=== PATIENT | male | born 1990 | race Caucasian/White ===

== ENCOUNTER 2017-03-24 20:53 | Emergency (ER) | payer BC, OTHER ==
[~2017-03-24] VITALS: Ht 170.2 cm; Wt 65.8 kg
[~2017-03-24 20:53] MED LIST: AUGMENTIN 875875 MG PO; AZITHROMYCIN 2250 MG PO; CIPROFLOXACIN500 M1 PO; CLARITIN-D 12 H1 TA1 PO; CLINDAMYCIN HC150 MG PO; ERYTHROMYCIN E3.5 G1 OPHTHALMIC; FLAGYL500 MG PO; IBUPROFEN 600600 M1 PO; IBUPROFEN 800800 MG PO; NOHOMEMEDICATIONS; NORCO 5-325 TA1 EACH PO; PHENERGAN 25 MG25 M1 PO; SUDAFED 12 HOU120 MG PO; TESSALON PERLE100 MG PO; TUSSIONEX PENN473 ML PO; TYLENOL COLD H1 EACH PO; VENTOLIN HFA 1818 GM INH
[2017-03-24] MEDS ORDERED: PROPRANOLOL 8080 MG PO (22:42)
[2017-07-19] MEDS ORDERED: MOBIC15 MG PO (16:07)
== END 2017-03-24 23:58 | disposition home or self-care (01) ==
LOC: ER 20:53
DX: G43.909 Migraine, unspecified, not intractable, without status migrainosus (principal); F17.210 Nicotine dependence, cigarettes, uncomplicated; Z88.1 Allergy status to other antibiotic agents

== ENCOUNTER 2017-04-03 00:21 | Emergency (ER) | payer BC, OTHER ==
[~2017-04-03] VITALS: Ht 170.2 cm; Wt 64.9 kg
[~2017-04-03 00:21] MED LIST changes: +PROPRANOLOL 8080 MG PO
[2017-04-03 00:52] LABS: HEMATOCRIT 40.1 % (42.0-52.0); HEMOGLOBIN 14.2 gm/dL (14.0-18.0); MCH 32.3 pg (26.0-34.0); MCHC 35.3 g/dL (28.0-37.0); MCV 91.6 fL (80.0-100.0); RBC 4.38 mil/uL (4.50-6.00); RDW 12.2 % (10.5-14.5)
[2017-04-03 00:55] LABS: CALCIUM 8.8 mg/dL (8.5-10.1); POTASSIUM 3.7 mmol/L (3.5-5.1)
[2017-04-03 01:01] LABS: ALBUMIN 3.7 g/dL (3.4-5.0); TOTAL BILIRUBIN 0.3 mg/dL (<0.1-1.0); TOTAL PROTEIN 7.5 g/dL (6.4-8.2)
[2017-04-03] MEDS ORDERED: BENTYL 10 MG CA10 M1 PO (01:18)
[2017-07-19] MEDS ORDERED: MOBIC15 MG PO (16:07)
== END 2017-04-03 01:39 | disposition home or self-care (01) ==
LOC: ER 00:21
PROVIDERS: Emergency Medicine
DX: R10.9 Unspecified abdominal pain (principal); R19.7 Diarrhea, unspecified; G43.909 Migraine, unspecified, not intractable, without status migrainosus; F17.210 Nicotine dependence, cigarettes, uncomplicated; Z88.1 Allergy status to other antibiotic agents

== ENCOUNTER 2017-04-05 14:42 | Emergency (ER) | payer BC, OTHER ==
[~2017-04-05] VITALS: Ht 170.2 cm; Wt 64.4 kg
[~2017-04-05 14:42] MED LIST changes: +BENTYL 10 MG CA10 M1 PO
[2017-07-19] MEDS ORDERED: MOBIC15 MG PO (16:07)
== END 2017-04-05 15:57 | disposition home or self-care (01) ==
LOC: ER 14:42
DX: L29.9 Pruritus, unspecified (principal); T43.615A Adverse effect of caffeine, initial encounter; G43.909 Migraine, unspecified, not intractable, without status migrainosus; F17.210 Nicotine dependence, cigarettes, uncomplicated; Z88.1 Allergy status to other antibiotic agents; Y92.89 Other specified places as the place of occurrence of the external cause

== ENCOUNTER 2017-04-21 23:31 | Emergency (ER) | payer BC, OTHER ==
[~2017-04-21] VITALS: Ht 170.2 cm; Wt 62.1 kg
[2017-04-21] MEDS ORDERED: ANTIBIOTIC (23:38)
[2017-04-21 23:53] LABS: URINE BILIRUBIN NEGATIVE (Negative); URINE BLOOD NEGATIVE (Negative); URINE CLARITY CLEAR; URINE COLOR YELLOW; URINE GLUCOSE-RANDOM* NEGATIVE (Negative); URINE KETONES NEGATIVE (Negative); URINE LEUKOCYTES-REFLEX NEGATIVE (Negative); URINE NITRITE-REFLEX NEGATIVE (Negative); URINE PROTEIN (DIPSTICK) NEGATIVE (Negative); URINE SPECIFIC GRAVITY 1.025 (1.005-1.035); URINE UROBILINOGEN 0.2 E.U./dl (0.2-1.0)
[2017-04-22 00:02] LABS: BASOPHILS 1.1 % (0.0-2.0); EOSINOPHILS 3.7 % (0.0-3.0); HEMATOCRIT 39.3 % (42.0-52.0); HEMOGLOBIN 13.7 gm/dL (14.0-18.0); LYMPHOCYTES 50.8 % (24.0-44.0); MCH 31.7 pg (26.0-34.0); MCHC 34.9 g/dL (28.0-37.0); MCV 90.8 fL (80.0-100.0); MONOCYTES 7.1 % (1.0-8.0); PLATELET COUNT 259 thou/uL (150-400); POLYS 37.3 % (36.0-66.0); RBC 4.33 mil/uL (4.50-6.00); RDW 12.4 % (10.5-14.5); WBC 5.4 thou/uL (4.0-11.0)
[2017-04-22 00:08] LABS: CALCIUM 8.9 mg/dL (8.5-10.1); CREATININE 0.9 mg/dL (0.7-1.3); POTASSIUM 4.3 mmol/L (3.5-5.1)
[2017-04-22] MEDS ORDERED: AZITHROMYCIN 2250 MG PO (00:09)
[2017-04-22 00:15] LABS: ALBUMIN 3.9 g/dL (3.4-5.0); DIRECT BILIRUBIN 0.1 mg/dL (<0.1-0.3); TOTAL BILIRUBIN 0.5 mg/dL (<0.1-1.0); TOTAL PROTEIN 7.3 g/dL (6.4-8.2)
[2017-04-22] MEDS ORDERED: PRILOSEC OTC20 MG PO (00:27)
[2017-07-19] MEDS ORDERED: MOBIC15 MG PO (16:07)
== END 2017-04-22 00:47 | disposition home or self-care (01) ==
LOC: ER 23:31
PROVIDERS: Emergency Medicine
DX: R10.13 Epigastric pain (principal); R30.0 Dysuria; G43.909 Migraine, unspecified, not intractable, without status migrainosus; F17.210 Nicotine dependence, cigarettes, uncomplicated

== ENCOUNTER 2017-05-02 20:24 | Emergency (ER) | payer BC, OTHER ==
[~2017-05-02] VITALS: Ht 170.2 cm; Wt 62.1 kg
[~2017-05-02 20:24] MED LIST changes: +ANTIBIOTIC; +PRILOSEC OTC20 MG PO
[2017-05-02] MEDS ORDERED: ZANTAC 150MG T150 MG PO (21:44)
[2017-07-19] MEDS ORDERED: MOBIC15 MG PO (16:07)
== END 2017-05-02 21:54 | disposition home or self-care (01) ==
LOC: ER 20:24
DX: K21.9 Gastro-esophageal reflux disease without esophagitis (principal); J02.9 Acute pharyngitis, unspecified; L29.9 Pruritus, unspecified; G43.909 Migraine, unspecified, not intractable, without status migrainosus; F17.210 Nicotine dependence, cigarettes, uncomplicated; Z88.1 Allergy status to other antibiotic agents

== ENCOUNTER 2017-05-13 17:24 | Emergency (ER) | payer BC, OTHER ==
[~2017-05-13] VITALS: Ht 170.2 cm; Wt 62.6 kg
[~2017-05-13 17:24] MED LIST changes: +ZANTAC 150MG T150 MG PO
[2017-05-13] MEDS ORDERED: OMEPRAZOLE40 MG PO (17:59)
[2017-07-19] MEDS ORDERED: MOBIC15 MG PO (16:07)
== END 2017-05-13 18:26 | disposition home or self-care (01) ==
LOC: ER 17:24
DX: K21.9 Gastro-esophageal reflux disease without esophagitis (principal); G43.909 Migraine, unspecified, not intractable, without status migrainosus; Z88.1 Allergy status to other antibiotic agents

== ENCOUNTER 2017-12-10 21:37 | Emergency (ER) | payer BC, OTHER ==
[~2017-12-10] VITALS: Ht 170.2 cm; Wt 65.8 kg
[~2017-12-10 21:37] MED LIST changes: +MOBIC15 MG PO; +OMEPRAZOLE40 MG PO
[2017-12-10] MEDS ORDERED: ONDANSETRON HCL4 M2 PO (23:42)
[2017-12-10] MEDS ORDERED: MOBIC7.5 MG PO (23:42)
[2017-12-10] MEDS ORDERED: PREDNISONE 20 M20 MG PO (23:42)
[2017-12-10 23:47] VITALS: BP 98/64
== END 2017-12-10 23:48 | disposition home or self-care (01) ==
LOC: ER 21:37
DX: J02.8 Acute pharyngitis due to other specified organisms (principal); B97.89 Other viral agents as the cause of diseases classified elsewhere; R11.2 Nausea with vomiting, unspecified; G43.909 Migraine, unspecified, not intractable, without status migrainosus; K21.9 Gastro-esophageal reflux disease without esophagitis; Z88.1 Allergy status to other antibiotic agents

== ENCOUNTER 2017-12-19 14:41 | Emergency (ER) | payer BC, OTHER ==
[~2017-12-19] VITALS: Ht 170.2 cm; Wt 65.8 kg
[~2017-12-19 14:41] MED LIST changes: +MOBIC7.5 MG PO; +ONDANSETRON HCL4 M2 PO; +PREDNISONE 20 M20 MG PO
[2017-12-19] MEDS ORDERED: DOXYCYCLINE 10100 MG PO (15:20)
[2017-12-19] MEDS ORDERED: FLONASE 0.05%50 MCG NASAL (15:20)
[2017-12-19 18:15] VITALS: BP 109/67
== END 2017-12-19 15:50 | disposition home or self-care (01) ==
LOC: ER 14:41
DX: J32.9 Chronic sinusitis, unspecified (principal); G43.909 Migraine, unspecified, not intractable, without status migrainosus; K21.9 Gastro-esophageal reflux disease without esophagitis; Z88.1 Allergy status to other antibiotic agents

== ENCOUNTER 2018-04-12 22:53 | Observation (INO) | payer BC, OTHER ==
[~2018-04-12] VITALS: Ht 170.2 cm; Wt 62.6 kg
[~2018-04-12 22:53] MED LIST changes: +DOXYCYCLINE 10100 MG PO; +FLONASE 0.05%50 MCG NASAL
[2018-04-12 23:00] VITALS: BP 118/78
[2018-04-12 23:27] LABS: ABSOLUTE NEUTROPHILS 6.1 thou/uL (1.4-8.2); CALCIUM 8.6 mg/dL (8.5-10.1); CREATININE 0.9 mg/dL (0.7-1.3); EOSINOPHILS 2.1 % (0.0-3.0); HEMATOCRIT 40.1 % (42.0-52.0); HEMOGLOBIN 13.9 gm/dL (14.0-18.0); LYMPHOCYTES 25.7 % (24.0-44.0); MCH 31.5 pg (26.0-34.0); MCHC 34.7 g/dL (28.0-37.0); MCV 90.7 fL (80.0-100.0); MONOCYTES 5.4 % (1.0-8.0); PLATELET COUNT 241 thou/uL (150-400); POLYS 65.8 % (36.0-66.0); POTASSIUM 3.6 mmol/L (3.5-5.1); RBC 4.42 mil/uL (4.50-6.00); RDW 12.8 % (10.5-14.5); WBC 9.3 thou/uL (4.0-11.0)
[2018-04-12 23:33] LABS: ALBUMIN 3.8 g/dL (3.4-5.0); TOTAL BILIRUBIN 0.7 mg/dL (<0.1-1.0); TOTAL PROTEIN 7.3 g/dL (6.4-8.2)
[2018-04-12 23:36] LABS: URINE BILIRUBIN NEGATIVE (Negative); URINE BLOOD NEGATIVE (Negative); URINE CLARITY CLEAR; URINE COLOR YELLOW; URINE GLUCOSE-RANDOM* NEGATIVE (Negative); URINE KETONES NEGATIVE (Negative); URINE LEUKOCYTES NEGATIVE (Negative); URINE NITRITE NEGATIVE (Negative); URINE PROTEIN (DIPSTICK) NEGATIVE (Negative); URINE SPECIFIC GRAVITY 1.015 (1.005-1.035); URINE UROBILINOGEN 0.2 E.U./dl (0.2-1.0)
[2018-04-13] VITALS (8 sets, daily range): BP systolic 102–117; BP diastolic 60–81
--- NOTE | 2018-04-13 07:37 | NUR ---
PT WAS ADMITTED TO THE UNIT AT APPROX 0230 FROM THE ER IN A STABLE CONDITION.ADMISSION ASSESSMENT,HX AND EDUCATION COMPLETED.UP ADLIB.C/O RLQ ABD PAIN,MANAGED WITH IV PAIN MED.PT NPO SINCE ADMIT WILL BE GOING TO SURGERY AFTER ONE O'CLOCK.REPORT TO AM NURSE.
--- NOTE | 2018-04-13 08:08 | NUR ---
ASSUMED CARE OF PT AT 0700. ASSESSMENT COMPLETED. A&O,X4. C/O RLQ ABD PAIN, PHYSICIAN NOTIFIED FOR PAIN MED ORDER. DENIES N/V/D. REGULAR HEART SOUNDS, NO CHEST PAIN. CLEAR LUNG SOUNDS, NO SOA. SKIN INTACT, TATTOO'S NOTED. PT LEFT IN STABLE CONDITION FOR SURGERY PREOP AT 0800.
--- NOTE | 2018-04-13 09:13 | NUR ---
PATIENT'S MOM, S.O., AND UNRELATED ADULT ARRIVED TO ROOM. PT ALREADY IN SURGERY AT THIS TIME. ESCORTED FAMILY TO SURGICAL WAITING ROOM.
[2018-04-13] MEDS ORDERED: ONDANSETRON HCL4 M2 PO (09:48)
[2018-04-13] MEDS ORDERED: NORCO 5-325 TA1 EACH PO (09:48)
--- NOTE | 2018-04-13 11:08 | NUR ---
PT ARRIVED TO ROOM FROM PACU IN STABLE CONDITION AT 1100. DROWSY, BUT AROUSABLE. REPORTING POSTOP ABD PAIN, PAIN MEDS GIVEN ORDERED. 3 LAP SITES WITH DERMABOND INTACT, NO BLEEDING OR DRAINAGE. DENIES N/V AT THIS TIME. MOTHER AT BEDSIDE. WILL CONTINUE TO MONITOR.
--- NOTE | 2018-04-13 20:01 | NUR ---
EOS. PLAN TO D/C LATER TONIGHT. DISCHARGE ORDERS READY. PT REPORTING ABD PAIN NOT WELL CONTROLLED. PAIN MEDS GIVEN ORDERED. REPORT GIVEN TO NIGHT NURSE.
--- NOTE | 2018-04-13 20:25 | NUR ---
Assumed care of pt at 1900. Pt alert and oriented x4. Lab sites clean and intact. Pt up ad elijah. Pt parent picked up prescription meds. Went over discharge packet with patient. Verbalizes understanding.
--- NOTE | 2018-04-16 13:08 | PATH ---
[facility] [address] [place] [address] PATHOLOGY RPT PROCEDURE Name: ELIO ADLER Room #: 431-P FAITH Dale MRonald#: [id number] Admission: 04/13/18 Date of : 89 Discharge: 04/13/18 Report #: [id number] Path Case #: [id number] [facility] Accession Number: [id number] . 01 Material submitted: . APPENDIX . 01 Clinical history: . Acute appendicitis . 02 Diagnosis: Appendix, appendectomy: - Marked acute appendicitis along with marked serositis. . (IUV:at;04/14/2018) QTA/04/14/2018 . 02 Electronically signed: . Clementina Prather MD, Pathologist NPI- [id number] . 01 Gross description: . The specimen is received in formalin, labeled "Elio Adler, appendix", is an intact appendix measuring 6.1 cm in length and up to 1.0 cm in diameter with abundantly attached yellow lobulated mesoappendix measuring 3.7 x 1.4 x 0.7 cm. The proximal resection margin is closed by a linear staple line measuring 1.3 cm in length with an average 0.1 cm width. The serosa is vargas-pink and shows diffusely congested vessels. The proximal resection margin is inked black. The proximal lumen is dilated and is filled with vargas-brown, soft fecal material. The mid to distal lumen is not dilated and filled with hemorrhagic, vargas-pink material. The wall thickness ranges from 0.1 to 0.3 cm. No discrete perforations, fecalith or masses identified. [employer] Land [employer] tissue is submitted in A1. (SWS; 04/13/2018) SHS/SHS . 02 Pathologist provided ICD-10: K35.80, K65.8 . 02 CPT . 377810 Specimen Comment: A courtesy copy of this report has been sent to Specimen Comment: [phone], , . Specimen Comment: Report sent to ,DR FITZPATRICK / DR GREER Specimen Comment: A duplicate report has been generated due to demographic updates. Performed at: [address] [place] [address] PATHOLOGY RPT PROCEDURE Name: ELIO ADLER Room #: 431-P FAITH Dale MMarileeRMarilee#: [id number] Admission: 04/13/18 Date of : 89 Discharge: 04/13/18 Report #: [id number] Path Case #: [id number] [facility] [address], [place], [place] [id number] MD Thai Leija MD Phone: [phone] Performed at: [address], [place], [place] [id number] MD Clementina Prather MD Phone: [phone]
== END 2018-04-13 21:15 | disposition home or self-care (01) ==
LOC: ER 22:53 → EROBS 04-13 01:39 → 4E 04-13 02:15
PROVIDERS: Emergency Medicine; ADMIT Surgery
DX: K35.80 Unspecified acute appendicitis (principal); K21.9 Gastro-esophageal reflux disease without esophagitis; G43.909 Migraine, unspecified, not intractable, without status migrainosus; Z79.899 Other long term (current) drug therapy; Z88.1 Allergy status to other antibiotic agents
CPT/HCPCS: 50010; 50101; 50249; 50411; 50555; 50558; 50739; 50740; 50962; 51975; 52265; 53307; 53310; 54022; 54118; 56525; 56526; 62110; 62900; 70005